=== PATIENT | male | born 1965 | race Caucasian/White ===

== ENCOUNTER 2020-02-18 23:12 | Emergency (ER) | payer OTHER ==
[~2020-02-18] VITALS: Ht 180.3 cm; Wt 94.3 kg
[2020-02-19 01:51] VITALS: BP 159/92
== END 2020-02-19 02:02 | disposition home or self-care (01) ==
LOC: ER 23:12
DX: R21 Rash and other nonspecific skin eruption (principal); L29.9 Pruritus, unspecified; L25.9 Unspecified contact dermatitis, unspecified cause; L74.0 Miliaria rubra